=== PATIENT | male | born 1960 | race Caucasian/White ===

== ENCOUNTER 2018-06-11 15:51 | Emergency (ER) | payer BC, SELFPAY ==
[2018-06-11 15:52] VITALS: BP 170/78; PULSE 99; RESP 16; TEMP 36.9; O2SAT 99; BMI 33.7
--- NOTE | 2018-06-11 16:02 | RAD_ITS ---
STUDY: X-RAY - RIGHT ANKLE REASON FOR EXAM: Male, 58 years old. Along the shower. Swelling TECHNIQUE: 3 view(s) of the ankle. COMPARISON: None. FINDINGS: No evidence for an acute fracture or dislocation seen. No osteochondral lesions of the talar dome. Fifth metatarsal base is within normal limits. Anterior process of the calcaneus is within normal limits. Plantar calcaneal spurring is noted. No definite evidence for acute fractures noted. Electronically Signed: Carlos Ontiveros, at 16:49 EDT Tel , Service support , RAD/Ankle min 3 Views
--- NOTE | 2018-06-11 16:09 | ED.DCSUM_ITS ---
- ER Visit Summary Date of Service: 06/11/18 Chief Complaint: Right ankle injury History of Present Illness: The patient is a 58 M presenting with right ankle injury. Patient states he slipped in the shower 2 days ago and fell. He twisted his right ankle. He has been able to ambulate since. He states the following day he walked for 5 hours. He has been using ibuprofen and ice at home. He states initially his right shoulder and right hand also were painful. This has since resolved. Denies other complaints. Physical Examination: Vitals are stable. Patient is afebrile. Alert no acute distress. HEENT exam is unremarkable. Lungs are clear and equal bilaterally. Heart is regular rate and rhythm. Extremities right lateral ankle tenderness and swelling, no Achilles tendon tenderness, no fifth metatarsal tenderness, no proximal fibular tenderness. Right hand and shoulder are nontender with active full range of motion. Skin is warm and dry. No focal neurologic deficit. Remainder of exam is unremarkable. Emergency Department Course and Treatment: Right ankle x-ray shows no acute fracture. Patient is given a boot orthosis. Advised to ice and elevate. Advised use NSAIDs for pain. Advised to follow-up with primary care physician. Advised return to ED for worsening complaints. Disposition: Discharge home Impression: Right ankle sprain This note was generated with [employer] dictation software. It may contain incorrect words, spelling, and punctuation that were not noted in review of the chart prior to signing ED Disposition - Plan for ED Patient: Chief Complaint: Lower Extremity Injury Instructions: ED Sprain Ankle W X Ray Referrals: Polo Hidalgo [Primary Care Provider] -
--- NOTE | 2018-06-11 17:04 | ED.DEP ---
ED Disposition - Plan for ED Patient: Chief Complaint: Lower Extremity Injury Instructions: ED Sprain Ankle W X Ray Referrals: Polo Hidalgo [Primary Care Provider] -
[2018-06-11 17:47] VITALS: BP 168/83; PULSE 82; RESP 16; O2SAT 99
== END 2018-06-11 17:49 | disposition home or self-care (01) ==
LOC: ED 16:46
PROVIDERS: Emergency Provider Emergency Medicine; Family Provider Student in an Organized Health Care Education/Training Program; PCP Student in an Organized Health Care Education/Training Program
DX: S93.401A Sprain of unspecified ligament of right ankle, initial encounter (principal); W18.2XXA Fall in (into) shower or empty bathtub, initial encounter; Y93.9 Activity, unspecified; Y92.9 Unspecified place or not applicable
CPT/HCPCS: 73610; 99283

== ENCOUNTER 2018-06-20 23:39 | Emergency (ER) | payer BC, SELFPAY ==
[2018-06-20 23:40] VITALS: BP 183/91; PULSE 84; RESP 15; TEMP 36.7; O2SAT 94; BMI 37.9
--- NOTE | 2018-06-20 23:46 | ED.VISSUMM ---
- ER Visit Summary Date of Service: 06/20/18 Chief Complaint: Back pain History of Present Illness: The patient is a 58 M presenting with back pain. He states it started this morning and worsened throughout the day. He states he did batting practice this afternoon and did a lot of bending and throwing. He took ibuprofen earlier today. He complains of lower back pain. He denies numbness or weakness. Denies bowel or bladder incontinence. Denies fever. Denies abdominal pain. Denies chest pain or shortness of breath. Denies other complaints. Physical Examination: Vitals are stable. Patient is afebrile. Alert no acute distress. HEENT exam is unremarkable. Neck is supple. Lungs are clear and equal bilaterally. Heart is regular rate and rhythm. Abdomen is soft nontender nondistended. No guarding or rebound Back: lumbar diffuse tenderness, straight leg raise positive at 30 degrees on left Extremities are unremarkable. Skin is warm and dry. No focal neurologic deficit. Normal strength and sensation Remainder of exam is unremarkable. Emergency Department Course and Treatment: Patient is given morphine, Zofran IV. CT abdomen pelvis shows no acute findings in the abdomen and pelvis. No evidence of bowel obstruction. Normal appendix. Degenerative changes of the lumbar spine. At L4-5 there is a mild broad-based central disc bulge versus small disc protrusion. On reevaluation patient's pain has improved. He is given a prescription for a short course of Percocet. Advised to follow-up with his primary care physician. Advised return to ED for worsening complaints. Disposition: Discharge home Impression: Lumbar strain This note was generated with [employer] dictation software. It may contain incorrect words, spelling, and punctuation that were not noted in review of the chart prior to signing ED Disposition - Plan for ED Patient: Chief Complaint: Back Instructions: ED Sprain Strain Lumbar Prescriptions: Oxycodone HCl/Acetaminophen [Percocet 5/325] 1 tablet PO Q6H PRN PRN 3 Days #12 tablet PRN Reason: Pain Referrals: Polo Hidalgo [Primary Care Provider] -
[2018-06-20] MEDS: Morphine 4 MG/ML Syringe IV (23:52)
[2018-06-20] MEDS: Ondansetron 4 MG/2 ML Vial IV (23:53)
--- NOTE | 2018-06-21 01:48 | ED.DEP ---
ED Disposition - Plan for ED Patient: Chief Complaint: Back Instructions: ED Sprain Strain Lumbar Prescriptions: Oxycodone HCl/Acetaminophen [Percocet 5/325] 1 tablet PO Q6H PRN PRN 3 Days #12 tablet PRN Reason: Pain Referrals: Polo Hidalgo [Primary Care Provider] -
[2018-06-21] MEDS: Morphine 4 MG/ML Syringe IV (01:53)
[2018-06-21 01:54] VITALS: BP 139/88; PULSE 54; RESP 14; O2SAT 94
[2018-06-21 02:22] VITALS: BP 137/84; PULSE 87; RESP 15; O2SAT 98
--- NOTE | 2018-06-21 23:43 | CT_ITS ---
STUDY: CT ABDOMEN AND PELVIS WITHOUT CONTRAST REASON FOR EXAM: Male, 58 years old. Low back pain. No history of trauma. RADIATION DOSAGE (If Supplied By Facility): CTDIvol = ( 21.89 ) mGy, DLP = ( 1153.69 ) mGycm TECHNIQUE: Transaxial images were obtained from the dome of the diaphragm to the symphysis pubis without oral contrast, and without intravenous contrast. Sagittal and coronal images were reconstructed. Individualized dose optimization techniques were used for this CT. COMPARISON: None. FINDINGS: The visualized lung bases are unremarkable. The heart is not enlarged. Calcification of the mitral annulus. There is decreased attenuation of the liver consistent with steatosis. Normal gallbladder and extrahepatic biliary system. Normal spleen. Normal pancreas. Normal bilateral adrenal glands. Normal right kidney. Normal left kidney. Normal visualized stomach. Normal small intestine. Normal colon. The appendix is well visualized and appears normal. Normal abdominal aorta. Normal inferior vena cava. Normal retroperitoneum. No intra-abdominal free air. Normal urinary bladder. Normal visualized prostate gland. Normal abdominal wall. Normal alignment of the lumbar spine. Mild disc space narrowing L3-4 through L5-S1. At L4-5 mild broad-based disc bulge versus mild disc protrusion. CT/Abdomen/Pelvis without Cont IMPRESSION: No acute findings in the abdomen and pelvis. No evidence of bowel obstruction. Normal appendix. Degenerative changes of the lumbar spine. At L4-5 there is a mild broad-based central disc bulge versus small disc protrusion. Consider correlation with MRI. Electronically Signed: Srikanth Frye MD at 1:10 EDT , Service support ,
== END 2018-06-21 02:23 | disposition home or self-care (01) ==
PROVIDERS: Emergency Provider Emergency Medicine; Family Provider Student in an Organized Health Care Education/Training Program; PCP Student in an Organized Health Care Education/Training Program
DX: S39.012A Strain of muscle, fascia and tendon of lower back, initial encounter (principal); X50.1XXA Overexertion from prolonged static or awkward postures, initial encounter; Y93.64 Activity, baseball; Y92.9 Unspecified place or not applicable; Y99.9 Unspecified external cause status
CPT/HCPCS: 74176; 96374; 96375; 96376; 99285; A4216; J2405